=== PATIENT | female | born 1985 | race Caucasian/White ===

== ENCOUNTER 2017-10-29 12:13 | Emergency (ER) | payer MEDICAID ==
[2017-10-29] MEDS: IBUPROFEN 800 MG TAB PO (13:13)
== END 2017-10-29 15:48 | disposition home or self-care (01) ==
LOC: FTE 12:13
DX: M54.9 Dorsalgia, unspecified (principal); M54.2 Cervicalgia
CPT/HCPCS: 72040; 72072; 72100; 81025; 99283-25